=== PATIENT | male | born 1945 | race Caucasian/White ===

== ENCOUNTER 2023-07-30 13:20 | Outpatient (RCR) | payer MEDICARE, SELFPAY | END 2023-08-08 23:59 | LOC: NS 13:20 | PROVIDERS: PCP Family Medicine; Referring Provider Family Medicine; Visit Provider Family Medicine | DX: Z71.3 Dietary counseling and surveillance (principal); E11.22 Type 2 diabetes mellitus with diabetic chronic kidney disease; N18.32 Chronic kidney disease, stage 3b | CPT/HCPCS: 97802 ==

== ENCOUNTER 2023-08-28 09:09 | Outpatient (RCR) | payer MEDICARE, SELFPAY | END 2023-09-07 23:59 | LOC: NS 09:09 | PROVIDERS: PCP Family Medicine; Referring Provider Family Medicine; Visit Provider Family Medicine | DX: Z71.3 Dietary counseling and surveillance (principal); E11.22 Type 2 diabetes mellitus with diabetic chronic kidney disease; N18.32 Chronic kidney disease, stage 3b | CPT/HCPCS: 97803 ==

== ENCOUNTER 2023-09-30 12:49 | Outpatient (RCR) | payer MEDICARE, SELFPAY | END 2023-10-08 23:59 | LOC: NS 12:49 | PROVIDERS: PCP Family Medicine; Referring Provider Family Medicine; Visit Provider Family Medicine | DX: Z71.3 Dietary counseling and surveillance (principal); E11.22 Type 2 diabetes mellitus with diabetic chronic kidney disease; N18.32 Chronic kidney disease, stage 3b | CPT/HCPCS: 97803 ==